=== PATIENT | female | born 1960 | race American Indian/Alaskan Native ===

== ENCOUNTER 2017-12-26 17:34 | Emergency (ER) | payer BC ==
[2017-12-26 18:42] LABS: Basophils # (Auto) 0.1 K/mm3 (0.0-0.1); Eosinophils # (Auto) 0.2 K/mm3 (0.0-0.4); Eosinophils % (Auto) 2.9 % (0.0-4.3); Hematocrit 44.1 % (30.3-42.9); Hemoglobin 14.6 gm/dl (10.1-14.3); Lymphocytes # (Auto) 1.9 K/mm3 (1.2-5.4); Lymphocytes % (Auto) 33.6 % (13.4-35.0); Mean Corpuscular HGB Conc 33 % (30-34); Mean Corpuscular Hemoglobin 30 pg (28-32); Mean Corpuscular Volume 90 fl (79-97); Monocytes # (Auto) 0.5 K/mm3 (0.0-0.8); Monocytes % (Auto) 9.8 % (0.0-7.3); Platelet Count 292 K/mm3 (140-440); Red Blood Count 4.92 M/mm3 (3.65-5.03); Red Cell Distribution Width 13.4 % (13.2-15.2)
[2017-12-26 19:02] LABS: Alanine Aminotransferase 47 units/L (7-56); Albumin 3.7 g/dL (3.9-5); BUN/Creatinine Ratio 14; Blood Urea Nitrogen 13 mg/dL (7-17); Calcium 8.5 mg/dL (8.4-10.2); Hemolysis Index 7
[2017-12-26 19:08] LABS: Bilirubin,Urine NEG (Negative); Blood,Urine NEG (Negative); Color,Urine Straw (Yellow); Protein,Urine <15 mg/dL mg/dL (Negative); Urobilinogen,Urine < 2.0 mg/dL (<2.0)
--- NOTE | 2017-12-26 19:46 | XRay Report ---
FINAL REPORT PROCEDURE: XR ABD SERIES W CXR 1V TECHNIQUE: Abdominal series complete, including supine and upright AP views of the abdomen and frontal chest. HISTORY: constipation COMPARISON: No prior studies are available for comparison. FINDINGS: The lungs are clear. Heart size and pulmonary vasculature appear normal. No acute bony abnormalities are seen. On the upright view there are few air-fluid levels seen which appear to project over the transverse colon and right side of the colon. On the supine view these do not appear to be significantly distended. No free intraperitoneal gas is seen. Multiple calcifications project over the lower pelvis which may represent phleboliths. There are additional small calcifications seen right paraspinal region inferiorly lumbar spine. These may represent phleboliths. Ureteral calculi need clinical exclusion. Moderate amount of stool collected over the rectum. Stool pattern otherwise unremarkable. IMPRESSION: Stool pattern as described. Nonspecific bowel gas pattern. Nonspecific calcifications as described. No definite bowel obstruction or free intraperitoneal gas is seen. No acute abnormalities are seen in the chest.
[2017-12-26] MEDS ORDERED: NACL 0.9% 1000 ML 1,000 ML ONE (20:08)
[2017-12-26] MEDS ORDERED: NACL 0.9% 1000 ML 1,000 ML IV ONE (20:11)
--- NOTE | 2017-12-26 20:45 | Emergency Department Report ---
ED General Adult HPI - General Chief complaint: Abdominal Pain Stated complaint: CAN'T URINATE/BOWEL MOVEMENTS Time Seen by Provider: 12/26/17 20:09 Source: patient Mode of arrival: Ambulatory Limitations: No Limitations - History of Present Illness Initial comments: Constipation for 2 days history of diabetes, home enema and didn't help here with worsening abdominal pain she denies nausea vomiting she is passing gas no black or bloody stool no chest pain no fever no dysuria no other complaints -: days(s) Location: abdomen Associated Symptoms: weakness. denies: confusion, chest pain, cough, diaphoresis, fever/chills, headaches, loss of appetite, malaise, nausea/vomiting , shortness of breath, syncope - Related Data Previous Rx's Medication Instructions Recorded Last Taken Type Glycerin 1 each RC BID PRN #10 supp.rect 12/27/17 Unknown Rx Allergies Allergy/AdvReac Type Severity Reaction Status Date / Time No Known Allergies Allergy Unverified 12/26/17 18:11 ED Review of Systems ROS: Stated complaint: CAN'T URINATE/BOWEL MOVEMENTS Other details as noted in HPI Comment: All other systems reviewed and negative Constitutional: denies: diaphoresis, fever, malaise ENT: denies: dental pain, hearing loss, epistaxis Respiratory: denies: shortness of breath, SOB with exertion, SOB at rest, stridor Cardiovascular: denies: chest pain, palpitations, dyspnea on exertion, orthopnea , edema, syncope, paroxysmal nocturnal dyspnea Gastrointestinal: abdominal pain, constipation. denies: nausea, vomiting, diarrhea, hematemesis, melena, hematochezia Genitourinary: denies: urgency, frequency, hematuria Neurological: denies: headache, weakness, numbness, paresthesias, abnormal gait , vertigo Hematological/Lymphatic: denies: easy bruising, swollen glands ED Past Medical Hx - Past Medical History Hx Hypertension: Yes Hx Diabetes: Yes - Surgical History Additional Surgical History: partial hysterectomy - Social History Smoking Status: Never Smoker Substance Use Type: None - Medications Home Medications: Home Medications Medication Instructions Recorded Confirmed Last Taken Type Glycerin 1 each RC BID PRN #10 supp.rect 12/27/17 Unknown Rx ED Physical Exam - General Limitations: No Limitations General appearance: alert, in no apparent distress, anxious - Head Head exam: Present: atraumatic, normocephalic - Eye Eye exam: Present: PERRL, EOMI - ENT ENT exam: Present: normal exam, normal orophraynx - Neck Neck exam: Absent: tenderness, meningismus - Respiratory Respiratory exam: Present: normal lung sounds bilaterally. Absent: respiratory distress, wheezes, rales, rhonchi, stridor - Cardiovascular Cardiovascular Exam: Present: regular rate, normal rhythm, normal heart sounds. Absent: bradycardia, tachycardia, irregular rhythm - GI/Abdominal GI/Abdominal exam: Present: soft, distended. Absent: tenderness, guarding, rebound, mass, bruit, pulsatile mass - Extremities Exam Extremities exam: Present: normal inspection, normal capillary refill. Absent: calf tenderness - Back Exam Back exam: Present: normal inspection. Absent: CVA tenderness (L), paraspinal tenderness, vertebral tenderness - Neurological Exam Neurological exam: Present: alert, oriented X3, CN II-XII intact. Absent: motor sensory deficit - Skin Skin exam: Absent: diaphoretic, erythema, urticaria, vesicles, petechiae, pallor , abrasion, ecchymosis ED Course Vital Signs 12/26/17 12/26/17 12/26/17 18:11 20:05 20:06 Temperature 98.7 F Pulse Rate 89 Respiratory 18 18 Rate Blood Pressure 151/86 O2 Sat by Pulse 99 98 100 Oximetry 12/26/17 12/26/17 12/26/17 20:16 21:00 21:03 Temperature Pulse Rate 82 83 81 Respiratory 26 H 19 20 Rate Blood Pressure 103/67 112/71 112/71 O2 Sat by Pulse 100 99 99 Oximetry 12/26/17 21:30 Temperature Pulse Rate 77 Respiratory 26 H Rate Blood Pressure 119/79 O2 Sat by Pulse 97 Oximetry ED Medical Decision Making - Lab Data Result diagrams: 12/26/17 18:23 12/26/17 18:23 - Radiology Data Radiology results: report reviewed - Medical Decision Making No acute abdomen at this time CT nondiagnostic patient's tolerated by mouth no evidence of obstruction laboratory studies are unremarkable except for elevated glucose. Patient is not ketotic she did receive fluids and insulin normal anion gap normocephalic no acute ptosis she is alert and oriented 3 and is stable for outpatient follow-up Critical care attestation.: If time is entered above; I have spent that time in minutes in the direct care of this critically ill patient, excluding procedure time. ED Disposition Clinical Impression: Abdominal pain, Constipation, Hyperglycemia Disposition: DC- TO HOME OR SELFCARE Is pt being admited?: No Condition: Stable Instructions: Abdominal Pain (ED), Constipation (ED), High Fiber Diet (ED), Diabetic Hyperglycemia (ED) Additional Instructions: See your doctor or the doctor listed return if new alarming symptoms he will need to get an [id number] enema prescription as directed Prescriptions: Glycerin 1 each RC BID PRN #10 supp.rect PRN Reason: Constipation Time of Disposition: 02:23
[2017-12-26] MEDS ORDERED: HumuLIN R IV ONE (23:51)
--- NOTE | 2017-12-26 23:52 | Cat Scan Report ---
FINAL REPORT PROCEDURE: CT ABDOMEN PELVIS WO CON TECHNIQUE: Computerized axial tomography of the abdomen and pelvis was performed without intravenous contrast. This study is performed without intravascular contrast material and its sensitivity for abdominal and pelvic pathology, including neoplasms, inflammation, abscess, free fluid, thrombosis, arterial dissection and infarction, is reduced compared with a contrast enhanced study. HISTORY: abd pain, air fluid levels COMPARISON: No prior studies are available for comparison. FINDINGS: Lower Lung [place]: No focal abnormality seen. Upper Abdomen: The liver, the gallbladder, the adrenal glands, the pancreas and the spleen are unremarkable. Kidneys, Ureters and Urinary bladder: No abnormalities are identified. Retroperitoneum: Atherosclerotic changes are seen in the abdominal aorta and iliac arteries. No aneurysm is visualized. Nonspecific subcentimeter lymph nodes are seen in the retroperitoneum. No pathologically enlarged lymph nodes are identified. Bowel: Oral contrast is seen extending from the stomach to the colon. No evidence of bowel obstruction. No transition zones are identified. No focal bowel loop abnormalities are seen. Normal-appearing appendix is seen in the right mid pelvis laterally. Reproductive organs: Uterus is surgically absent. No abnormal adnexal masses are seen. Other: No acute bony abnormalities are seen. IMPRESSION: Prior cholecystectomy. No acute abnormalities are identified. No evidence of bowel obstruction..
[2017-12-27 02:46] VITALS: BP 119/86
== END 2017-12-27 02:41 | disposition home or self-care (01) ==
LOC: ED 17:34
DX: K59.00 Constipation, unspecified (principal); E11.65 Type 2 diabetes mellitus with hyperglycemia; I10 Essential (primary) hypertension; Z90.711 Acquired absence of uterus with remaining cervical stump
CPT/HCPCS: 36415; 74022; 74176; 80053; 81001; 82805; 82962; 85025; 96361; 96374; 99284; J7030; J1815